=== PATIENT | female | born 1995 | race African-American/Black ===

== ENCOUNTER 2018-04-12 22:13 | Emergency (ER) | payer MEDICAID ==
[~2018-04-12] VITALS: Ht 149.9 cm; Wt 50.0 kg
[2018-04-12 22:15] VITALS: BP 107/72
== END 2018-04-13 01:00 | disposition left against medical advice (07) ==
LOC: ER 22:34
DX: Z53.21 Procedure and treatment not carried out due to patient leaving prior to being seen by health care provider (principal)